=== PATIENT | female | born 1950 | race Hispanic/Latino ===

== ENCOUNTER 2020-12-17 00:02 | Inpatient (IN) | payer MEDICARE ==
[2020-12-17] VITALS (8 sets, daily range): BP systolic 108–130; BP diastolic 43–73
[~2020-12-17] VITALS: Ht 152.4 cm; Wt 54.6 kg
[~2020-12-17 00:02] MED LIST: ASPIRIN EC81 MG PO; CLOPIDOGREL75 MG PO; LIPITOR20 MG PO; LISINOPRIL10 MG PO; METFORMIN HCL500 MG PO; PRAVASTATIN SOD40 MG PO; SODIUM BICARBO650 MG PO
[2020-12-17] MEDS ORDERED: CEFEPIME 1 GM in SODIUM CHLORIDE 0.9% 50ML 50 ML IV ONE (00:45)
[2020-12-17] MEDS ORDERED: ASPIRIN 81 MG CHEW TAB PO ONE (00:45)
[2020-12-17] MEDS ORDERED: SODIUM CHLORIDE 0.9% 1000ML 1,000 ML IV SCH (00:45)
[2020-12-17] MEDS ORDERED: ACETAMINOPHEN 325 MG SUPP PR ONE (01:00)
[2020-12-17] MEDS ORDERED: SODIUM CHLORIDE 0.9% 1000ML 1,000 ML IV ONE (01:00)
[2020-12-17] MEDS ORDERED: ACETAMINOPHEN 650 MG SUPP PR ONE (01:01)
[2020-12-17 01:04] LABS: POTASSIUM 4.8 mmol/L (3.5-5.1)
[2020-12-17 01:10] LABS: CLARITY,URINE CLOUDY (CLEAR); COLOR,URINE ORANGE (YELLOW); LEUKOCYTE ESTERASE ,URINE 1+ (NEGATIVE)
[2020-12-17 01:11] LABS: KETONES,URINE NEGATIVE (NEGATIVE); NITRITE,URINE POSITIVE (NEGATIVE); PROTEIN,URINE DIPSTICK 2+ (NEGATIVE); URINE UROBILINOGEN 0.2 mg/dL (0.2 - 1)
[2020-12-17 01:14] LABS: CREATINE KINASE MB 5.4 ng/mL (0-5.0)
[2020-12-17 01:15] LABS: ALBUMIN 3.3 g/dL (3.5-5.0); ALBUMIN/GLOBULIN RATIO 0.9 (0.8-2.0); CALCIUM 8.4 mg/dL (8.4-10.2); CREATININE, SERUM 1.76 mg/dL (0.57-1.11)
[2020-12-17 01:21] LABS: BASOPHILS % 0.3 % (0.0-1.0); EOSINOPHILS # (AUTO) 0.1 (0.0-0.4); HEMOGLOBIN 8.4 g/dL (12.0-16.0); LYMPHOCYTES # (AUTO) 0.6 (1.0-3.2); MEAN CORPUSCULAR VOLUME 88.6 fL (81-99); MONOCYTES # (AUTO) 0.1 (0.2-0.8); MONOCYTES % 1.1 % (4.4-11.3); NEUTROPHILS # (AUTO) 8.2 (2.1-6.9); NEUTROPHILS % 89.6 % (38.7-80.0); PLATELET COUNT 129 x10e3/uL (140-360); RED BLOOD COUNT 2.71 x10e6/uL (3.6-5.1); RED CELL DISTRIBUTION WIDTH 13.4 % (11.7-14.4)
[2020-12-17 01:36] LABS: BACTERIA,URINE MANY /HPF; EPITHELIAL CELLS,URINE FEW /LPF; RBC,URINE 0-5 /HPF (0-5); WBC,URINE (MAN) >50 /HPF (0-5)
[2020-12-17 01:43] LABS: ANION GAP 15.8 mmol/L (8-16)
[2020-12-17] MEDS: SODIUM CHLORIDE 0.9% 1000ML 1,000 ML IV SCH ×3 (02:00→02:50)
[2020-12-17] MEDS ORDERED: IOPAMIDOL 370 MG/ML 200 ML INFUS..BTL INJ ONE (02:14)
[2020-12-17] MEDS ORDERED: SODIUM CHLORIDE 0.9% 50ML 50 ML ONE (02:14)
[2020-12-17] MEDS ORDERED: AMLODIPINE BES2.5 MG PO (05:38)
[2020-12-17] MEDS ORDERED: ALENDRONATE SOD70 MG PO (05:38)
[2020-12-17] MEDS ORDERED: GLIPIZIDE ER5 MG PO (05:38)
[2020-12-17] MEDS ORDERED: JANUVIA100 MG PO (05:38)
[2020-12-17] MEDS ORDERED: CARVEDILOL25 MG PO (05:38)
[2020-12-17] MEDS ORDERED: FUROSEMIDE20 MG PO (05:38)
[2020-12-17] MEDS ORDERED: FERRO-TIME325 MG PO (05:38)
[2020-12-17] MEDS ORDERED: ATORVASTATIN CA10 MG PO (05:38)
[2020-12-17] MEDS ORDERED: OMEPRAZOLE20 MG PO (05:38)
[2020-12-17] MEDS ORDERED: LOSARTAN POTASS50 MG PO (05:38)
[2020-12-17] MEDS ORDERED: LANTUS 3ML100 UNITS/ SQ (05:38)
[2020-12-17 09:16] LABS: BASOPHILS % 0.2 % (0.0-1.0); EOSINOPHILS % 0.2 % (0.0-6.0); HEMOGLOBIN 7.9 g/dL (12.0-16.0); LYMPHOCYTES # (AUTO) 1.4 (1.0-3.2); LYMPHOCYTES % 7.1 % (18.0-39.1); MEAN CORPUSCULAR HEMOGLOBIN 31.5 pg (28-32); MEAN CORPUSCULAR HGB CONC 34.8 g/dL (31-35); MEAN CORPUSCULAR VOLUME 90.4 fL (81-99); MONOCYTES # (AUTO) 1.7 (0.2-0.8); MONOCYTES % 8.9 % (4.4-11.3); NEUTROPHILS # (AUTO) 15.8 (2.1-6.9); PLATELET COUNT 107 x10e3/uL (140-360); RED BLOOD COUNT 2.51 x10e6/uL (3.6-5.1); RED CELL DISTRIBUTION WIDTH 13.3 % (11.7-14.4)
[2020-12-17 09:18] LABS: HEMATOCRIT 22.7 % (34.2-44.1)
[2020-12-17] MEDS ORDERED: DEXTROSE 50% SYRINGE 50 ML IV PRN ×2 (10:45)
[2020-12-17] MEDS ORDERED: HYDRALAZINE HCL 20 MG/ML VIAL IV PRN (10:45)
[2020-12-17 10:46] LABS: ANION GAP 11.1 mmol/L (8-16); CALCIUM 7.4 mg/dL (8.4-10.2); CREATININE, SERUM 1.54 mg/dL (0.57-1.11); POTASSIUM 4.1 mmol/L (3.5-5.1)
[2020-12-17 11:14] LABS: ABG HCO3 17 mmol/L (22-26); ABG PCO2 29 mmHg (35-45); ABG PH 7.38 (7.35-7.45); ABG PO2 117 mmHg (80-105); ABG TCO2 18
[2020-12-17] MEDS ORDERED: SODIUM CHLORIDE 0.9% IV ONE (11:30)
[2020-12-17] MEDS ORDERED: SODIUM BICARBONATE 8.4% IV ONE (11:30)
[2020-12-17] MEDS: INSULIN REGULAR, HUMAN 100 UNIT/1 ML SQ SCH ×3 (12:20→21:00)
[2020-12-17] MEDS: CEFEPIME 1 GM in SODIUM CHLORIDE 0.9% 50ML 50 ML IV SCH (12:24)
[2020-12-17] MEDS: SODIUM BICARBONATE 8.4% 50 ML in SODIUM CHLORIDE 0.45% 1,000 ML IV SCH (15:24)
[2020-12-17] MEDS: Vancomycin IV 1 GM in SODIUM CHLORIDE 0.9% 250ML 250 ML IV SCH (21:50)
[2020-12-18] VITALS (9 sets, daily range): BP systolic 127–154; BP diastolic 44–58
[2020-12-18] MEDS: CEFEPIME 1 GM in SODIUM CHLORIDE 0.9% 50ML 50 ML IV SCH ×2 (01:35→12:16)
[2020-12-18] MEDS: SODIUM BICARBONATE 8.4% 50 ML in SODIUM CHLORIDE 0.45% 1,000 ML IV SCH ×2 (05:15→19:30)
[2020-12-18 06:24] LABS: BASOPHILS # (AUTO) 0.1 (0.0-0.1); BASOPHILS % 0.3 % (0.0-1.0); EOSINOPHILS # (AUTO) 0.2 (0.0-0.4); EOSINOPHILS % 1.4 % (0.0-6.0); HEMATOCRIT 23.1 % (34.2-44.1); LYMPHOCYTES # (AUTO) 2.5 (1.0-3.2); LYMPHOCYTES % 14.5 % (18.0-39.1); MEAN CORPUSCULAR HEMOGLOBIN 30.9 pg (28-32); MEAN CORPUSCULAR HGB CONC 34.6 g/dL (31-35); MEAN CORPUSCULAR VOLUME 89.2 fL (81-99); MONOCYTES # (AUTO) 1.4 (0.2-0.8); MONOCYTES % 8.1 % (4.4-11.3); NEUTROPHILS # (AUTO) 12.8 (2.1-6.9); NEUTROPHILS % 74.3 % (38.7-80.0); PLATELET COUNT 124 x10e3/uL (140-360); RED BLOOD COUNT 2.59 x10e6/uL (3.6-5.1); RED CELL DISTRIBUTION WIDTH 13.8 % (11.7-14.4)
[2020-12-18 07:01] LABS: ALBUMIN 2.6 g/dL (3.5-5.0); ALBUMIN/GLOBULIN RATIO 0.7 (0.8-2.0); ANION GAP 13.2 mmol/L (8-16); CALCIUM 7.6 mg/dL (8.4-10.2); CREATININE, SERUM 1.39 mg/dL (0.57-1.11); POTASSIUM 4.2 mmol/L (3.5-5.1)
[2020-12-18] MEDS: INSULIN REGULAR, HUMAN 100 UNIT/1 ML SQ SCH ×4 (07:23→21:00)
[2020-12-18] MEDS: Vancomycin IV 1 GM in SODIUM CHLORIDE 0.9% 250ML 250 ML IV SCH ×2 (09:14→21:00)
[2020-12-19] VITALS (8 sets, daily range): BP systolic 136–156; BP diastolic 49–54
[2020-12-19] MEDS: ACETAMINOPHEN 325 MG TAB PO PRN ×2 (01:10→21:15)
[2020-12-19] MEDS: CEFEPIME 1 GM in SODIUM CHLORIDE 0.9% 50ML 50 ML IV SCH (01:10)
[2020-12-19] MEDS: MEROPENEM 500 MG in SODIUM CHLORIDE 0.9% 50ML 50 ML IV SCH ×3 (03:27→20:45)
[2020-12-19 05:26] LABS: ANION GAP 8.7 mmol/L (8-16); CALCIUM 7.3 mg/dL (8.4-10.2); CREATININE, SERUM 1.15 mg/dL (0.57-1.11); POTASSIUM 3.7 mmol/L (3.5-5.1)
[2020-12-19] MEDS: INSULIN REGULAR, HUMAN 100 UNIT/1 ML SQ SCH ×4 (07:30→20:28)
[2020-12-19] MEDS: SODIUM BICARBONATE 8.4% 50 ML in SODIUM CHLORIDE 0.45% 1,000 ML IV SCH ×2 (08:00→17:02)
[2020-12-20] VITALS (7 sets, daily range): BP systolic 136–169; BP diastolic 46–56
[2020-12-20 06:43] LABS: ANION GAP 15.2 mmol/L (8-16); CALCIUM 7.7 mg/dL (8.4-10.2); CREATININE, SERUM 0.96 mg/dL (0.57-1.11); POTASSIUM 4.2 mmol/L (3.5-5.1)
[2020-12-20] MEDS: SODIUM BICARBONATE 8.4% 50 ML in SODIUM CHLORIDE 0.45% 1,000 ML IV SCH (07:30)
[2020-12-20] MEDS: INSULIN REGULAR, HUMAN 100 UNIT/1 ML SQ SCH ×4 (07:30→21:00)
[2020-12-20] MEDS ORDERED: MEROPENEM 500 MG in SODIUM CHLORIDE 0.9% 50ML 50 ML IV SCH (09:00)
[2020-12-20 12:28] LABS: BASOPHILS # (AUTO) 0.1 (0.0-0.1); BASOPHILS % 0.5 % (0.0-1.0); EOSINOPHILS # (AUTO) 0.1 (0.0-0.4); EOSINOPHILS % 0.8 % (0.0-6.0); HEMATOCRIT 23.5 % (34.2-44.1); HEMOGLOBIN 7.9 g/dL (12.0-16.0); LYMPHOCYTES # (AUTO) 1.7 (1.0-3.2); LYMPHOCYTES % 12.8 % (18.0-39.1); MEAN CORPUSCULAR HEMOGLOBIN 30.5 pg (28-32); MEAN CORPUSCULAR HGB CONC 33.6 g/dL (31-35); MEAN CORPUSCULAR VOLUME 90.7 fL (81-99); MONOCYTES % 7.7 % (4.4-11.3); NEUTROPHILS # (AUTO) 10.1 (2.1-6.9); NEUTROPHILS % 76.3 % (38.7-80.0); PLATELET COUNT 143 x10e3/uL (140-360); RED BLOOD COUNT 2.59 x10e6/uL (3.6-5.1)
[2020-12-20] MEDS: CEFTRIAXONE 1 GM in SODIUM CHLORIDE 0.9% 50ML 50 ML IV SCH (14:00)
[2020-12-20] MEDS: AMLODIPINE BESYLATE 5 MG TAB PO SCH (15:30)
[2020-12-20] MEDS: CARVEDILOL 12.5 MG TAB PO SCH (16:46)
[2020-12-20] MEDS ORDERED: SODIUM CHLORIDE 0.9% 50ML 50 ML ONE (18:50)
[2020-12-20] MEDS: ATORVASTATIN 10 MG TAB PO SCH (21:56)
[2020-12-20] MEDS: ACETAMINOPHEN 325 MG TAB PO PRN (22:03)
[2020-12-21] VITALS (9 sets, daily range): BP systolic 123–150; BP diastolic 37–58
[2020-12-21] MEDS: CEFTRIAXONE 1 GM in SODIUM CHLORIDE 0.9% 50ML 50 ML IV SCH ×2 (02:20→12:19)
[2020-12-21 05:01] LABS: BASOPHILS # (AUTO) 0.1 (0.0-0.1); BASOPHILS % 0.4 % (0.0-1.0); EOSINOPHILS # (AUTO) 0.4 (0.0-0.4); EOSINOPHILS % 3.2 % (0.0-6.0); HEMOGLOBIN 7.8 g/dL (12.0-16.0); LYMPHOCYTES # (AUTO) 2.3 (1.0-3.2); LYMPHOCYTES % 18.8 % (18.0-39.1); MEAN CORPUSCULAR HEMOGLOBIN 30.6 pg (28-32); MEAN CORPUSCULAR HGB CONC 33.9 g/dL (31-35); MEAN CORPUSCULAR VOLUME 90.2 fL (81-99); MONOCYTES # (AUTO) 1.3 (0.2-0.8); MONOCYTES % 10.4 % (4.4-11.3); NEUTROPHILS # (AUTO) 7.8 (2.1-6.9); NEUTROPHILS % 63.9 % (38.7-80.0); PLATELET COUNT 158 x10e3/uL (140-360); RED BLOOD COUNT 2.55 x10e6/uL (3.6-5.1)
[2020-12-21 05:24] LABS: ANION GAP 13.9 mmol/L (8-16); CALCIUM 7.3 mg/dL (8.4-10.2); CREATININE, SERUM 1.04 mg/dL (0.57-1.11); MAGNESIUM 2.3 MG/DL (1.3-2.1); POTASSIUM 3.9 mmol/L (3.5-5.1)
[2020-12-21 05:45] LABS: FERRITIN 1141.33 ng/mL (4.63-204.00)
[2020-12-21] MEDS: INSULIN REGULAR, HUMAN 100 UNIT/1 ML SQ SCH ×4 (08:20→22:07)
[2020-12-21] MEDS: CARVEDILOL 12.5 MG TAB PO SCH ×2 (08:24→16:10)
[2020-12-21] MEDS: FERROUS SULFATE 325 MG TAB PO SCH (08:24)
[2020-12-21] MEDS: PANTOPRAZOLE SOD 40 MG TABEC PO SCH (08:24)
[2020-12-21] MEDS: AMLODIPINE BESYLATE 5 MG TAB PO SCH (08:26)
[2020-12-21] MEDS ORDERED: SODIUM BICARBONATE 650 MG TAB PO SCH (09:00)
[2020-12-21] MEDS: ACETAMINOPHEN 325 MG TAB PO PRN (16:16)
[2020-12-21] MEDS: ATORVASTATIN 10 MG TAB PO SCH (21:21)
[2020-12-22] MEDS: CEFTRIAXONE 1 GM in SODIUM CHLORIDE 0.9% 50ML 50 ML IV SCH ×2 (03:05→16:19)
[2020-12-22 04:32] VITALS: BP 149/51
[2020-12-22] MEDS ORDERED: ALBUTEROL/IPRATROPIUM 3 ML NEB NEB ONE (07:45)
[2020-12-22 08:11] VITALS: BP 171/75
[2020-12-22 08:25] VITALS: BP 171/75
[2020-12-22] MEDS: INSULIN REGULAR, HUMAN 100 UNIT/1 ML SQ SCH ×4 (08:30→20:43)
[2020-12-22] MEDS: AMLODIPINE BESYLATE 5 MG TAB PO SCH (09:00)
[2020-12-22] MEDS: CARVEDILOL 12.5 MG TAB PO SCH ×2 (09:00→17:15)
[2020-12-22] MEDS: PANTOPRAZOLE SOD 40 MG TABEC PO SCH (09:00)
[2020-12-22] MEDS: FERROUS SULFATE 325 MG TAB PO SCH (09:00)
[2020-12-22 10:19] LABS: BASOPHILS # (AUTO) 0.1 (0.0-0.1); BASOPHILS % 0.5 % (0.0-1.0); EOSINOPHILS # (AUTO) 0.3 (0.0-0.4); EOSINOPHILS % 2.7 % (0.0-6.0); HEMOGLOBIN 8.1 g/dL (12.0-16.0); LYMPHOCYTES # (AUTO) 1.6 (1.0-3.2); LYMPHOCYTES % 13.4 % (18.0-39.1); MEAN CORPUSCULAR HEMOGLOBIN 30.8 pg (28-32); MEAN CORPUSCULAR HGB CONC 33.8 g/dL (31-35); MEAN CORPUSCULAR VOLUME 91.3 fL (81-99); MONOCYTES # (AUTO) 0.9 (0.2-0.8); MONOCYTES % 7.8 % (4.4-11.3); NEUTROPHILS # (AUTO) 8.4 (2.1-6.9); NEUTROPHILS % 71.6 % (38.7-80.0); PLATELET COUNT 212 x10e3/uL (140-360); RED BLOOD COUNT 2.63 x10e6/uL (3.6-5.1); RED CELL DISTRIBUTION WIDTH 14.1 % (11.7-14.4)
[2020-12-22 11:27] VITALS: BP 137/53
[2020-12-22] MEDS ORDERED: FUROSEMIDE INJ 10 MG/ML 4 ML VIAL IV ONE (15:45)
[2020-12-22 20:00] VITALS: BP_SYST 112; BP_SYST 142; BP_DIAS 50; BP_DIAS 58
[2020-12-22] MEDS: ATORVASTATIN 10 MG TAB PO SCH (20:42)
[2020-12-22] MEDS ORDERED: POTASSIUM CHLORIDE 20 MEQ TAB CR PO STA (21:01)
[2020-12-23] VITALS (8 sets, daily range): BP systolic 124–161; BP diastolic 42–66
[2020-12-23] MEDS: CEFTRIAXONE 1 GM in SODIUM CHLORIDE 0.9% 50ML 50 ML IV SCH ×2 (01:56→14:07)
[2020-12-23 05:34] LABS: ANION GAP 12.4 mmol/L (8-16); CALCIUM 8.1 mg/dL (8.4-10.2); CREATININE, SERUM 0.92 mg/dL (0.57-1.11); POTASSIUM 4.4 mmol/L (3.5-5.1)
[2020-12-23 06:03] LABS: ALBUMIN 2.6 g/dL (3.5-5.0); BILIRUBIN,DIRECT 0.2 mg/dL (0.0-0.5)
[2020-12-23] MEDS: INSULIN REGULAR, HUMAN 100 UNIT/1 ML SQ SCH ×4 (08:30→21:00)
[2020-12-23] MEDS: CARVEDILOL 12.5 MG TAB PO SCH ×2 (09:09→17:08)
[2020-12-23] MEDS: PANTOPRAZOLE SOD 40 MG TABEC PO SCH (09:09)
[2020-12-23] MEDS: FUROSEMIDE INJ 10 MG/ML 4 ML VIAL IV SCH (09:09)
[2020-12-23] MEDS: DOCUSATE SODIUM 100 MG CAP PO SCH (09:09)
[2020-12-23] MEDS: MULTIVITAMINS/MINERALS TAB PO SCH (09:10)
[2020-12-23] MEDS: CYANOCOBALAMIN 1,000 MCG TAB PO SCH (09:10)
[2020-12-23] MEDS: FERROUS SULFATE 325 MG TAB PO SCH (09:10)
[2020-12-23] MEDS: AMLODIPINE BESYLATE 5 MG TAB PO SCH (09:10)
[2020-12-23] MEDS: ATORVASTATIN 10 MG TAB PO SCH (21:00)
[2020-12-24] VITALS (7 sets, daily range): BP systolic 148–161; BP diastolic 48–87
[2020-12-24] MEDS: CEFTRIAXONE 1 GM in SODIUM CHLORIDE 0.9% 50ML 50 ML IV SCH ×2 (02:00→14:00)
[2020-12-24] MEDS: PANTOPRAZOLE SOD 40 MG TABEC PO SCH (07:30)
[2020-12-24] MEDS: INSULIN REGULAR, HUMAN 100 UNIT/1 ML SQ SCH ×3 (07:30→16:30)
[2020-12-24] MEDS: FUROSEMIDE INJ 10 MG/ML 4 ML VIAL IV SCH (09:00)
[2020-12-24] MEDS: MULTIVITAMINS/MINERALS TAB PO SCH (09:00)
[2020-12-24] MEDS: FERROUS SULFATE 325 MG TAB PO SCH (09:00)
[2020-12-24] MEDS: DOCUSATE SODIUM 100 MG CAP PO SCH (09:00)
[2020-12-24] MEDS: CARVEDILOL 12.5 MG TAB PO SCH ×2 (09:00→17:00)
[2020-12-24] MEDS: CYANOCOBALAMIN 1,000 MCG TAB PO SCH (09:00)
[2020-12-24] MEDS: AMLODIPINE BESYLATE 5 MG TAB PO SCH (09:00)
[2020-12-24] MEDS ORDERED: KEFLEX125 MG/5 M PO (19:16)
== END 2020-12-24 21:10 | disposition home or self-care (01) | DRG 871 ==
LOC: ER 00:49 → ERHOLD 01:52 → MED/SURG2 04:43
PROVIDERS: ADMIT Internal Medicine; ATTEND Internal Medicine
DX: A41.51 Sepsis due to Escherichia coli [E. coli] (principal); R65.21 Severe sepsis with septic shock; J81.0 Acute pulmonary edema; N17.9 Acute kidney failure, unspecified; M62.82 Rhabdomyolysis; E87.1 Hypo-osmolality and hyponatremia; N10 Acute pyelonephritis; E11.22 Type 2 diabetes mellitus with diabetic chronic kidney disease; E78.5 Hyperlipidemia, unspecified; N18.30 Chronic kidney disease, stage 3 unspecified; D69.6 Thrombocytopenia, unspecified; R53.81 Other malaise; E88.09 Other disorders of plasma-protein metabolism, not elsewhere classified; D64.9 Anemia, unspecified; Z20.822 Contact with and (suspected) exposure to COVID-19; E83.41 Hypermagnesemia; I27.20 Pulmonary hypertension, unspecified; E87.5 Hyperkalemia
CPT/HCPCS: 36415; 36600; 71045; 74177; 80048; 80053; 80076; 80202; 81001; 82550; 82553; 82607; 82728; 82805; 82948; 83540; 83605; 83735; 84466; 84484; 85025; 87040; 87071; 87086; 87186; 87205; J0692; J0696; J1817; J1940; J2185; J3370; J7030; J7050; Q9967; U0002